=== PATIENT | male | born 1985 | race Two or more races ===

== ENCOUNTER 2024-09-10 17:06 | Emergency (ER) | payer BC, OTHER ==
[2024-09-10] MEDS: Diphtheria,Pertussis(Acell),Tetanus Vaccine 0.5 ML Syringe IM ONE (17:29)
== END 2024-09-10 17:40 | disposition home or self-care (01) ==
LOC: VM.ED 17:06 → MERGE 17:06 → VM.ED 17:40
DX: S51.812A Laceration without foreign body of left forearm, initial encounter (principal); Z23 Encounter for immunization; W26.8XXA Contact with other sharp object(s), not elsewhere classified, initial encounter
CPT/HCPCS: 90471; 90715; 99283-25